=== PATIENT | male | born 1950 | race Hispanic/Latino ===

== ENCOUNTER 2024-05-26 19:19 | Emergency (ER) | payer MEDICARE, OTHER, SELFPAY ==
[2024-05-26 19:23] VITALS: BP 124/87
--- NOTE | 2024-05-26 20:13 | ED.GENMED ---
History of Present Illness
General
Chief Complaint: Musculo-Skeletal Complaint
Source: patient
Time Seen by Provider: 05/26/24 19:50
History of Present Illness
History of Present Illness:
73-year-old male presents to the emergency room complaining of pain in his right fourth toe. Patient states he slammed his toe into the corner of a wall while walking around a corner. He had immediate pain. No other injuries. Over the course of
the day the toe has become bruised and swollen.
Phy Exam
Physical Exam
Physical Exam:
General: Awake, Alert, Oriented X3. No acute distress.
Vitals: unremarkable
Head: Atraumatic
Eyes: Pupils equal, EOMI
Throat: Airway intact, no exudates
Neck: Trachea midline
Neuro: Nonfocal
Skin: Warm, dry, no rash
Extremities: pulses equal b/l, ecchymosis and swelling noted fourth digit right foot. Tender to palpation.
Course
Orders/Labs/Results
Orders:
Orders
05/26/24 19:27
Toes 2 Views, Right [CR Toe(s) Min 2 Vw Right] Urgent
Comment:
Reason For Exam: JAMMED INTO WALL
Indicate Which Toe:: Fourth
05/26/24 20:14
Cast Shoe Right-Treatment ONCE
Ibuprofen [Motrin] 600 mg PO NOW STA
Vital Signs
Initial and Last Documented VS:
Initial Vital Signs
Temp Pulse Resp BP Pulse Ox
99 F 84 22 124/87 98
05/26/24 19:23 05/26/24 19:23 05/26/24 19:23 05/26/24 19:23 05/26/24 19:23
Last Documented Vital Signs
Temp Pulse Resp BP Pulse Ox
99 F 84 22 124/87 98
05/26/24 19:23 05/26/24 19:23 05/26/24 19:23 05/26/24 19:23 05/26/24 19:23
MDM/Problems Addressed
Differential Diagnosis Includes:
Fracture, dislocation, contusion
MDM/Problems Addressed:
X-ray shows fracture at the proximal fourth phalanx. We will walt tape the toe and place him in a postop shoe. Recommend podiatry follow-up closer to his home.
*Radiology
Radiology exam reviewed: preliminary read by ED provider (X-ray personally reviewed by myself. Fracture noted fourth proximal phalanx)
*Pulse Oximetry
Patient hypoxic: no
*Critical Care Note
Total Time (30-74mins, 75-104mins- exclusive of procedures): Not Applicable
ED Attending Note
-
Portions of this chart may have been created with voice recognition software.� Occasional wrong word or��sound alike� substitutions may have occurred due to the inherent limitations of voice recognition software.
Discharge Plan
Departure
Patient Disposition: Home (Routine Discharge)
Date of Disposition: 05/26/24
Time of Disposition: 20:13
Patient with high blood pressure during this ER visit?: No
Condition: Good
Discharge Problem:
Fracture of toe, closed
Instructions: Toe Fracture ED
Referrals:
MARISA ROSS [Other]
Activity Restrictions/Additional Instructions:
You can follow-up with a dust mop maker close to home. You can take 400 to 600 mg of ibuprofen every 6 hours for pain. Apply ice to the toe 20 minutes at a time several times a day. Try to keep that foot elevated.
Interventions
Interventions:
*Risk Screen - Suicide Last Done: 05/26/24 19:23
*Neglect/Abuse Screening Last Done: 05/26/24 19:23
*Nursing Disposition Last Done: 05/26/24 20:36
ED-Musculoskeletal Assessment Last Done: 05/26/24 20:34
Discharge Date and Time
Discharge Date/Time: 05/26/24 20:37
Print Language: ROMANIAN
[2024-05-26] MEDS: MOTRIN 600 MG PO (20:21)
== END 2024-05-26 20:37 | disposition home or self-care (01) ==
LOC: EMR 19:19
PROVIDERS: EMERGENCY PHYSICIAN Emergency Medicine
DX: S92.511A Displaced fracture of proximal phalanx of right lesser toe(s), initial encounter for closed fracture (principal); W22.01XA Walked into wall, initial encounter
CPT/HCPCS: 99283; 73660